=== PATIENT | male | born 1950 | race Caucasian/White ===

== ENCOUNTER 2023-11-30 08:55 | Emergency (ER) | payer OTHER ==
[~2023-11-30] VITALS: Ht 177.8 cm; Wt 86.0 kg
[2023-11-30] MEDS ORDERED: DEXCOM G7 SENS1 EACH TD (09:08)
[2023-11-30] MEDS ORDERED: METFORMIN HCL750 MG PO (09:12)
[2023-11-30] MEDS ORDERED: CLARITIN10 M2 PO (09:12)
[2023-11-30] MEDS ORDERED: LIPITOR80 MG GT (09:12)
[2023-11-30] MEDS ORDERED: BUPROPION HCL200 MG PO (09:12)
[2023-11-30] MEDS ORDERED: JARDIANCE10 MG PO (09:13)
[2023-11-30] MEDS ORDERED: LISINOPRIL20 MG PO (09:13)
[2023-11-30] MEDS ORDERED: SOTALOL80 M1 PO (09:13)
[2023-11-30] MEDS ORDERED: SPIRONOLACTONE25 MG PO (09:14)
[2023-11-30] MEDS ORDERED: ELIQUIS5 MG PO (09:15)
[2023-11-30 09:29] LABS: PH, VENOUS 7.357 (7.31-7.41)
[2023-11-30 09:31] LABS: HEMATOCRIT 43.2 % (35.0-50.0); HEMOGLOBIN 14.2 g/dL (12.0-18.0); LYMPHOCYTES 19.4 % (24-44); MCH 29.3 (27-36); MCHC 32.8 g/dl (30-36); MCV 89.4 fl (81-99); MONOCYTES 7.1 % (0-12); NEUTROPHILS 71.5 % (39-80); PLATELET COUNT 185 K/uL (140-440); RBC 4.83 M/ul (4.3-5.7); RDW 16.2 (10.5-15.0)
[2023-11-30 09:51] LABS: ALBUMIN 3.6 g/dL (3.4-5.0); ALBUMIN/GLOBULIN RATIO 1.03 (1.1-2.4); ANION GAP 15.2 (7-21); BILIRUBIN, TOTAL 0.4 ng/dL (0.2-1.0); BUN/CREATININE RATIO 19.35 (6.0-28.6); CALCIUM 9.3 mg/dL (8.5-10.1); CREATININE, SERUM 0.93 mg/dL (0.70-1.30); MAGNESIUM 1.6 mg/dL (1.8-2.4); POTASSIUM 4.2 mmol/L (3.5-5.1); PROTEIN, TOTAL 7.1 g/dL (6.4-8.2)
[2023-11-30 10:12] VITALS: BP 132/71
== END 2023-11-30 10:11 | disposition home or self-care (01) ==
LOC: ED 08:55
PROVIDERS: Family Medicine
DX: R73.9 Hyperglycemia, unspecified (principal); Z79.84 Long term (current) use of oral hypoglycemic drugs; Z79.01 Long term (current) use of anticoagulants
CPT/HCPCS: 36415; 80053; 82803; 83735; 85025